=== PATIENT | male | born 1975 | race Two or more races ===

== ENCOUNTER 2018-11-24 08:04 | Day surgery (SDC) | payer OTHER ==
[~2018-11-24 08:04] MED LIST: DULAGLUTIDE PO; INVOKAMET 150-1 EACH PO
[2018-11-24] MEDS ORDERED: ALEVE220 M1 PO (18:18)
[2018-11-24] MEDS ORDERED: PERCOCET 5-3251 EACH PO (18:18)
[2018-11-24] MEDS ORDERED: DUI500 PO (18:18)
== END 2018-11-24 20:15 | disposition home or self-care (01) ==
LOC: CIR.AMB 08:04
DX: S42.022A Displaced fracture of shaft of left clavicle, initial encounter for closed fracture (principal)